=== PATIENT | male | born 1970 | race Caucasian/White ===

== ENCOUNTER 2023-11-19 13:56 | Outpatient (REF) | payer MEDICAID, SELFPAY ==
[2023-11-19 14:44] LABS: MANUAL DIFF FLAG NO
[2023-11-19 15:17] LABS: Basophils Percent Auto 0.1 % (0-2); Eosinophils Percent Auto 0.1 % (0-4); Hematocrit 39.2 % (42.0-52.0); Hemoglobin 12.6 g/dl (14.0-18.0); Imm Gran Abs Auto 0.02 X10*3/uL (0.00-0.03); Imm Gran Pct Auto 0.3 % (0.0-0.4); Lymphocytes Absolute Auto 1.4 X10*3/uL (1.2-4.9); Lymphocytes Percent Auto 19.5 % (20-40); Mean Corpuscular HGB Conc 32.1 g/dl (31.0-36.0); Mean Corpuscular Hemoglobin 28.9 pg (27.0-33.0); Mean Corpuscular Volume 89.9 fL (80.0-98.0); Mean Platelet Volume 9.6 fL (9.4-12.4); Monocytes Absolute Auto 0.2 X10*3/uL (0.1-1.2); Monocytes Percent Auto 3.4 % (2-11); Neutrophils Absolute Auto 5.4 x10*3/uL (2.0-8.3); Neutrophils Percent Auto 76.6 % (45-73); Platelet Count 234 X10*3/uL (160-400); Red Blood Count 4.36 X10*6/uL (4.60-5.80); White Blood Count 7.1 X10*3/uL (4.8-10.8)
== END 2023-11-19 13:57 | disposition home or self-care (01) ==
LOC: HO.CHCLDS 13:56
PROVIDERS: Visit Provider Internal Medicine
DX: D59.4 Other nonautoimmune hemolytic anemias (principal)
CPT/HCPCS: 36415; 85025